=== PATIENT | male | born 1955 | race Caucasian/White ===

== ENCOUNTER 2020-12-02 14:45 | Emergency (ER) | payer MEDICARE, MEDICAID, SELFPAY ==
--- NOTE | ~2020-12-02 | XR_ITS ---
XR chest 1V portable 12/02/2020 16:31 Indication: Shortness of breath, fever and: Exposure Procedure: AP portable chest Comparison: No prior studies for comparison. Findings: Heart size normal. No focal air space disease, pulmonary edema, pleural effusion or suspect ed pneumothorax. Impression: 1: No acute cardiopulmonary disease. Reviewed, dictated and finalized at location A. ION MECHANIC Impression: 1: No acute cardiopulmonary disease.
[2020-12-02 14:53] VITALS: BP 164/79; PULSE 93; RESP 20; TEMP 37.8; O2SAT 97
--- NOTE | 2020-12-02 15:13 | ECG_ITS ---
Measurements Intervals Maurice Rate: 79 P: 69 MN: 179 QRS: 74 QRSD: 96 T: 81 QT: 345 QTc: 397 Interpretive Statements SINUS RHYTHM DELAYED PRECORDIAL R/S TRANSITION BORDERLINE ECG Electronically Signed On 12-02-2020 16:07:50 DEPARTMENTAL SHIPPING CLERK by Yohannes Santana D.O.
[2020-12-02 15:15] VITALS: BP 139/79; PULSE 84; RESP 20; O2SAT 96
--- NOTE | 2020-12-02 15:16 | WPDEDEXPGENP ---
HPI - General Ped General Chief complaint: Fever Stated complaint: AMB Source: patient Mode of arrival: ambulatory Limitations: no limitations History of Present Illness HPI narrative: Erick is a 65M with a PMH of tobacco abuse that was brought to the ED by EMS for a fever and SOB. He had been feeling a little down for about 1 week. However, 3-4 days ago he started feeling worse. He was short of breath and it was harder to breath. He had body aches, fatigue, and fevers up to 100 at home. No CP, N/V or syncope. Of note he had been exposed to a 91 year old neighbor that recently from [place]. Related Data Home Medications Medication Instructions Recorded Confirmed No Home Medications 12/02/20 12/02/20 Allergies Allergy/AdvReac Type Severity Reaction Status Date / Time No Known Allergies Allergy Verified 12/02/20 14:59 Pediatric Review of Systems : Constitutional: Reports fever, chills and other (fatigue) Eyes: Reports other (No additional concerns) ENT: Reports other (No additional concerns) Cardiovascular: Denies chest pain, palpitations and syncope Respiratory: Reports as per HPI Gastrointestinal: Denies abdominal pain, vomiting and diarrhea Genitourinary: Reports other (No additional concerns) Musculoskeletal: Reports myalgias Integumentary: Reports other (No additional concerns) Neurological: Reports other (No additional concerns) Psychiatric: Reports change in energy level (decreased energy) [facility] Social History Social History Gender identity (if verbalized by the patient): Male Pediatric Exam General: General appearance: well-appearing, well-hydrated, active and well-nourished Head: Head exam: normocephalic and atraumatic Eye: Eye exam: Present normal appearance and PERRL ENT: ENT exam: normal exam Neck: Neck exam: Present normal inspection Chest: Chest inspection: Present normal inspection Respiratory: Respiratory exam: Present normal lung sounds bilaterally and other (No wheezing, coughing or tachypnea. ) Cardiovascular: Cardiovascular exam: Present regular rate, normal rhythm and other (no murmur) Abdominal Exam: Abdominal exam: Present soft; Absent distention, tenderness and guarding Extremities Exam: Extremities exam: Present normal inspection Neurological Exam: Neurological exam: Present alert, oriented X3 and CN II-XII intact Skin: Skin exam: Present warm and dry Course Course Emergency Course: Erick was evaluated. Ordered EKG and labs as below. EKG showed NSR with a rate of 79, normal axis and no ST elevation/depression or ectopy Labs were remarkable for slighly elevated hemoglobin (likely from smoking) lymphopenia, mildly elevated D-dimer but negative given his age (per Age-adjusted D-dimer on MD calc), and normal chemistries. His rapid COVID was negative but a PCR was sent out given the possibility of false negative. XR chest 1V portable 12/02/2020 16:31 Indication: Shortness of breath, fever and: Exposure Procedure: AP portable chest Comparison: No prior studies for comparison. Findings: Heart size normal. No focal air space disease, pulmonary edema, pleural effusion or suspected pneumothorax. Impression: 1: No acute cardiopulmonary disease. As his vitals were WNL he was discharged home to quarantine. Vital Signs Vital signs: Vital Signs Temperature 100.0 F H 12/02/20 14:53 Pulse Rate 93 12/02/20 14:53 Respiratory Rate 20 12/02/20 14:53 Blood Pressure 164/79 H 12/02/20 14:53 Pulse Oximetry 97 12/02/20 14:53 Temperature 99.0 F 12/02/20 17:24 Pulse Rate 77 12/02/20 17:24 Respiratory Rate 20 12/02/20 17:24 Blood Pressure 147/77 H 12/02/20 17:24 Pulse Oximetry 96 12/02/20 17:24 Medical Decision Making Vital Signs Vital Signs: Vital Signs Temperature 100.0 F H 12/02/20 14:53 Pulse Rate 93 12/02/20 14:53 Respiratory Rate 20 12/02/20 14:53 Blo
[2020-12-02 15:38] LABS: Hematocrit 45.6 % (37.0-46.0); Hemoglobin 15.9 g/dL (12.4-15.3); Mean Corpuscular HGB Conc 34.9 g/dL (32.0-36.0); Mean Corpuscular Hemoglobin 30.6 pg (27.0-31.0); Mean Corpuscular Volume 87.9 fL (78.0-102.0); Mean Platelet Volume 10.5 fl (8.7-11.0); Platelet Count Result 111 K/mm3 (150-420); Red Blood Count 5.19 M/mm3 (4.70-6.10); Red Cell Distribution Width 13.2 % (11.6-14.4); White Blood Count 3.2 K/mm3 (4.8-10.8)
[2020-12-02 15:50] LABS: Prothrombin Time 10.6 Seconds (9.50-12.10)
[2020-12-02 15:53] LABS: Alanine Aminotransferase 35 U/L (16-63); Albumin Level 3.5 g/dL (3.4-5.0); Alkaline Phosphatase 89 U/L (46-116); Anion Gap 9 mmol/L (8-16); Aspartate Amino Transferase 22 U/L (15-37); Bilirubin,Total 0.3 mg/dL (0.00-1.00); Blood Urea Nitrogen 9 mg/dL (7-18); Calcium 8.2 mg/dL (8.5-10.1); Carbon Dioxide 28 mmol/L (21-32); Chloride 101 mmol/L (98-108); Estimated CRCL calculation 53 ml/min; Estimated Glomerular Filt Rate > 60; Glucose 99 mg/dL (70-99); Osmolality Calculated 284 mOsm/kg (285-295); Sodium 138 mmol/L (136-145); Total Protein 7.3 g/dL (6.4-8.2); Troponin I 6.1 ng/L (0.00-60.4)
[2020-12-02 15:56] LABS: Lactic Acid Reflex 0.5 mmol/L (0.4-2.0)
[2020-12-02 15:58] LABS: SARS-CoV-2 Ag Negative (Negative)
[2020-12-02 15:58] LABS: Influenza Control Valid (Valid)
[2020-12-02 16:00] VITALS: BP 144/81; PULSE 78; RESP 20; O2SAT 96
[2020-12-02 16:00] LABS: D Dimer 0.58 mg/L (0.19-0.50)
[2020-12-02 16:01] LABS: Band Neutrophils Percent 0 % (0-6); Basophils Absolute Manual 0.03 K/mm3 (0-0.1); Basophils Percent Manual 1 % (0-1); Eosinophils Percent Manual 0 % (1-6); Lymphocytes Percent Manual 22 % (18-44); Monocytes Absolute Manual 0.35 K/mm3 (0.1-0.90); Monocytes Percent Manual 11 % (3-9); Neutrophils Absolute Manual 2.11 K/mm3 (1.3-6.7); Neutrophils Percent Manual 66 % (46-73); Total Cells Counted 100
[2020-12-02 16:30] VITALS: BP 143/76; PULSE 78; RESP 20; O2SAT 96
[2020-12-02 16:39] LABS: Appearance Urine Clear (Clear); Bilirubin Urine Negative (Negative); Color Urine Yellow (Yellow); Glucose Urine UA Negative (Negative); Ketones Urine Negative (Negative); Leukocyte Esterase Ur Negative (Negative); Nitrate Urine Negative (Negative); Protein Urine Negative (Negative); Urobilinogen Urine 0.2 mg/dL (0.2-1.0); pH Urine 5.5 (5.0-8.0)
[2020-12-02 16:44] LABS: Add Urine Microscopic? YES; Blood Urine Trace (Negative); RBC Urine 0-2 /hpf (0-2); Squamous Epithelial Cell Urine Rare /hpf (Few); WBC Urine 0-3 /hpf (0-3)
[2020-12-02 16:45] LABS: Bacteria Urine Trace /hpf
[2020-12-02 17:24] VITALS: BP 147/77; PULSE 77; RESP 20; TEMP 37.2; O2SAT 96
[2020-12-04 18:11] LABS: SARS-CoV-2 RNA PCR Negative
== END 2020-12-02 17:26 | disposition home or self-care (01) ==
PROVIDERS: Emergency Provider Family Medicine
DX: Z20.822 Contact with and (suspected) exposure to COVID-19 (principal)
CPT/HCPCS: 71045; 80053; 81001; 83605; 84484; 85025; 85055; 85380; 85610; 87426; 87804; 93005; 99283; 99284; C9803; U0003; U0005

== ENCOUNTER 2023-03-16 08:55 | Emergency (ER) | payer OTHER, SELFPAY ==
[2023-03-16 09:09] VITALS: BP 165/82; PULSE 70; RESP 20; TEMP 36.9; O2SAT 96
--- NOTE | 2023-03-16 09:12 | ED.BACK ---
HPI - Back Pain/Injury General Chief Complaint: Back Pain/Injury Stated Complaint: back pain Time Seen by Provider: 03/16/23 08:57 Source: patient Mode of arrival: ambulatory Limitations: no limitations History of Present Illness HPI Narrative: this is a 68-year-old gentleman with history of chronic back pain presents with some left lower back pain with spasm, with no radiation of his pain no sciatic type discomfort, there is no numbness or tingling radiating down his leg, no history of kidney stones there is no dysuria no hematuria no fever chills. Pain started yesterday after he was mowing his lawn. There is no chest pain no shortness of breath no nausea vomiting no diarrhea constipation. MD elicited complaint: back pain Pertinent past history: prior back pain Onset (ago): day(s) Timing: constant Severity: mild Related Data Allergies Allergy/AdvReac Type Severity Reaction Status Date / Time No Known Allergies Allergy Verified 12/02/20 14:59 Review of Systems Review of Systems: All systems reviewed & are unremarkable except as noted in HPI and below PMFSH Past Medical History Medical History Patient denies medical problems Social History Social History Gender identity (if verbalized by the patient): Male Exam Const: General: healthy appearing Nutritional Appearance: well nourished Orientation/consciousness: patient oriented x3 Limitations: no limitations HENMT: Head: normal to inspection Eyes: Conjunctivae: conjunctivae normal Neck: Neck: normal visual inspection Chest: Chest palpation & inspection: normal inspection of the chest Resp: Effort & Inspection: normal respiratory effort Auscultation: clear to auscultation bilaterally Cardio: Rate: regular rate Rhythm: regular rhythm GI: GI Palp: Yes Soft to palpation Auscultation: normal bowel sounds : General: Yes bladder normal to palpation Back/Spine/Pelvis: Back: no CVA tenderness Skin: General skin exam: normal color Neuro: General: patient oriented x3 Extrem: General: normal to inspection Other: L5 left paravertebral tenderness with palpation with a negative straight leg raising test Psych: Mental Status: mental status grossly normal Affect: normal affect Course Course Emergency Course: patient received IM Toradol as well as IM muscle relaxer. Critical Care Time Critical Care Time Critical Care Time: No Discharge Plan Discharge Clinical Impression: Strain of lumbar region Qualifiers: Encounter type: initial encounter Qualified Code(s): S39.012A - Strain of muscle, fascia and tendon of lower back, initial encounter Patient Disposition: Home, Self-Care Condition: Stable Instructions: Antibiotic Form, Acute Low Back Pain (ED) Additional Instructions: advised to take medicine as prescribed and follow-up primary care if symptoms persist or worsen. Prescriptions: New cyclobenzaprine 10 mg tablet 10 mg PO TID Qty: 20 0RF naproxen 500 mg tablet 500 mg PO BID Qty: 14 0RF Follow-up/Referrals: UNKNOWN,DOCTOR [Primary Care Provider] -
[2023-03-16] MEDS: ORPHENADRINE CITRATE 30 MG/ML 2 ML VIAL 60 MG IM (09:17)
[2023-03-16] MEDS: KETOROLAC 30 MG/ML VIAL (*BKC) IM (09:17)
[2023-03-16 09:43] VITALS: BP 173/90; PULSE 74; RESP 20; TEMP 36.9; O2SAT 95
== END 2023-03-16 09:45 | disposition home or self-care (01) ==
LOC: CHSED 09:26
PROVIDERS: Emergency Provider Emergency Medicine
DX: S39.012A Strain of muscle, fascia and tendon of lower back, initial encounter (principal); X58.XXXA Exposure to other specified factors, initial encounter
CPT/HCPCS: 96372; 99284; J1885; J2360

== ENCOUNTER 2024-08-30 11:47 | Outpatient (CLI) | payer MEDICARE, MEDICAID, SELFPAY ==
[2024-08-30 12:09] LABS: Basophils Absolute Auto 0.06 K/mm3 (0.00-0.10); Basophils Percent Auto 0.9 % (0.0-1.0); Eosinophils Absolute Auto 0.08 K/mm3 (0.02-0.50); Eosinophils Percent Auto 1.2 % (1.0-6.0); Hematocrit 51.8 % (37.0-46.0); Hemoglobin 17.8 g/dL (12.4-15.3); Immature Granulocyte Absolute 0.03 K/mm3 (0.00-0.00); Immature Granulocyte Percent A 0.4 % (0.0-0.0); Lymphocytes Absolute Auto 1.33 K/mm3 (1.10-4.50); Lymphocytes Percent Auto 19.4 % (18.0-42.0); Mean Corpuscular HGB Conc 34.4 g/dL (32-36); Mean Corpuscular Hemoglobin 31.9 pg (27.0-31.0); Mean Corpuscular Volume 92.8 fL (78.0-102.0); Mean Platelet Volume 9.6 fl (8.7-11.0); Monocytes Percent Auto 10.2 % (2.0-11.0); Neutrophils Absolute Auto 4.66 K/mm3 (1.70-7.20); Neutrophils Percent Auto 67.9 % (50.0-70.0); Platelet Count Result 272 K/mm3 (150-420); Red Blood Count 5.58 M/mm3 (4.70-6.10); Red Cell Distribution Width 13.7 % (11.6-14.4); White Blood Count 6.9 K/mm3 (4.8-10.8)
[2024-08-30 12:59] LABS: Alanine Aminotransferase 30 U/L (16-63); Albumin Level 3.8 g/dL (3.4-5.0); Alkaline Phosphatase 116 U/L (46-116); Anion Gap 9 mmol/L (4-12); Aspartate Amino Transferase 18 U/L (15-37); Bilirubin,Total 0.4 mg/dL (0.00-1.00); Blood Urea Nitrogen 6 mg/dL (7-18); Calcium 9.5 mg/dL (8.5-10.1); Carbon Dioxide 29 mmol/L (21-32); Chloride 104 mmol/L (98-108); Cholesterol 206 mg/dL (0-200); Estimated Glomerular Filt Rate > 60; Glucose 88 mg/dL (70-99); HDL Direct 38 mg/dL (40-60); LDL Cholesterol Calculated 112 mg/dL (<130); Osmolality Calculated 290 mOsm/kg (285-295); Sodium 142 mmol/L (136-145); Total Protein 7.9 g/dL (6.4-8.2); Triglycerides 281 mg/dL (0-150)
[2024-08-30 13:02] LABS: Thyroid Stimulating Hormone Reflex 2.36 u/IU/mL (0.36-3.74)
[2024-08-31 10:08] LABS: Hepatitis A Antibody IgM NON-REACTIVE (NON-REACTIVE); Hepatitis B Core Antibody NON-REACTIVE (NON-REACTIVE)
[2024-08-31 10:29] LABS: Hepatitis B Surface Antigen NON-REACTIVE (NON-REACTIVE); Hepatitis C Virus Antibody NON-REACTIVE (NON-REACTIVE)
== END 2024-08-30 11:48 | disposition home or self-care (01) ==
PROVIDERS: PCP Family Medicine; Visit Provider Family Medicine
DX: Z00.00 Encounter for general adult medical examination without abnormal findings (principal); E03.9 Hypothyroidism, unspecified; R74.01 Elevation of levels of liver transaminase levels
CPT/HCPCS: 36415; 80053; 80061; 80074; 84443; 85025

== ENCOUNTER 2024-09-19 10:51 | Emergency (ER) | payer MEDICARE, MEDICAID, SELFPAY ==
--- NOTE | ~2024-09-19 | CT_ITS ---
EXAMINATION: CT facial bones wo con DATE: 09/19/2024 11:26 INDICATION: Right periorbital/cheek skin abscess. TECHNIQUE: Computed tomography (CT) of the facial bones and maxillofacial region was performed withou t intravenous contrast. Coronal reconstructions were obtained. Automated exposure control and iterati ve reconstruction technique were employed. The dose-length product was 457.03 mGy-cm. COMPARISON: None. FINDINGS: Cellulitis with skin thickening and haziness to the subcutaneous fat in the right malar region. Withi n this region is a 1.9 x 1.5 cm right malar loculated subcutaneous fluid collection which could repre sent an abscess or potentially superinfected sebaceous/epidermoid cyst. No soft tissue gas or radiopa que foreign bodies. Bilateral orbits are normal. Mild mucosal thickening in the anterior right ethmoi d an inferior right maxillary sinuses. Remainder of the paranasal sinuses are clear. Trace bilateral mastoid effusions. Bilateral middle ear cavities are clear. No maxillofacial fractures. There is exte nsive severe dental disease with dental caries of varying stages of progression throughout all of the teeth, many of which also demonstrated associated periapical lucencies. There is a 3.2 x 2.6 x 1.6 c m macroscopic fat attenuation lipoma at the right buccal region. Mild to moderate spondylosis in the visualized mid to upper cervical spine. IMPRESSION: 1. Right malar cellulitis with 1.9 x 1.5 cm likely abscess or superinfected sebaceous/epidermoid cyst . 2. 3.2 x 2.6 x 1.6 cm right buccal lipoma. 3. Extensive severe dental disease. Reviewed, dictated and finalized at location B. LANCE INTERPRETER/TRANSLATOR IMPRESSION: 1. Right malar cellulitis with 1.9 x 1.5 cm likely abscess or superinfected ketan aceous/epidermoid cyst. 2. 3.2 x 2.6 x 1.6 cm right buccal lipoma. 3. Extensive severe dental disease.
[2024-09-19 10:55] VITALS: BP 144/81; PULSE 84; RESP 16; TEMP 36.3; O2SAT 96
[2024-09-19 11:24] LABS: Basophils Absolute Auto 0.06 K/mm3 (0.00-0.10); Basophils Percent Auto 0.7 % (0.0-1.0); Eosinophils Absolute Auto 0.08 K/mm3 (0.02-0.50); Hematocrit 46.3 % (37.0-46.0); Hemoglobin 16.7 g/dL (12.4-15.3); Immature Granulocyte Absolute 0.03 K/mm3 (0.00-0.00); Immature Granulocyte Percent A 0.4 % (0.0-0.0); Lymphocytes Absolute Auto 0.97 K/mm3 (1.10-4.50); Lymphocytes Percent Auto 11.6 % (18.0-42.0); Mean Corpuscular HGB Conc 36.1 g/dL (32-36); Mean Corpuscular Hemoglobin 32.4 pg (27.0-31.0); Mean Corpuscular Volume 89.7 fL (78.0-102.0); Mean Platelet Volume 9.6 fl (8.7-11.0); Monocytes Absolute Auto 0.66 K/mm3 (0.10-0.90); Monocytes Percent Auto 7.9 % (2.0-11.0); Neutrophils Absolute Auto 6.57 K/mm3 (1.70-7.20); Neutrophils Percent Auto 78.4 % (50.0-70.0); Platelet Count Result 227 K/mm3 (150-420); Red Blood Count 5.16 M/mm3 (4.70-6.10); White Blood Count 8.4 K/mm3 (4.8-10.8)
--- NOTE | 2024-09-19 11:26 | PC.NURSE ---
pt to xray via wheel chair
--- NOTE | 2024-09-19 11:29 | PC.NURSE ---
Pt returned to room, call rtaore in reach.
[2024-09-19 11:40] LABS: Alanine Aminotransferase 30 U/L (16-63); Albumin Level 3.7 g/dL (3.4-5.0); Alkaline Phosphatase 112 U/L (46-116); Anion Gap 12 mmol/L (4-12); Aspartate Amino Transferase 18 U/L (15-37); Bilirubin,Total 0.9 mg/dL (0.00-1.00); Blood Urea Nitrogen 15 mg/dL (7-18); Calcium 9.5 mg/dL (8.5-10.1); Carbon Dioxide 27 mmol/L (21-32); Chloride 98 mmol/L (98-108); Estimated CRCL calculation 56 ml/min; Estimated Glomerular Filt Rate > 60; Glucose 107 mg/dL (70-99); Osmolality Calculated 284 mOsm/kg (285-295); Potassium 3.3 mmol/L (3.5-5.1); Sodium 137 mmol/L (136-145); Total Protein 8.3 g/dL (6.4-8.2)
[2024-09-19 11:43] LABS: Lactic Acid Reflex 1.6 mmol/L (0.4-2.0)
[2024-09-19] MEDS: LIDOCAINE HCL 1% LOCAL INJ 10 ML VIAL INFILTRATE (11:46)
--- NOTE | 2024-09-19 11:59 | ED.SKABFB ---
HPI - Skin/Abscess/Foreign Bdy General Chief complaint: Skin/Abscess/Foreign Body Stated complaint: facial abscess Source: patient Limitations: no limitations History of Present Illness HPI narrative: this is a 69-year-old male with history of hyperlipidemia presents from his doctor's office with some abscess on the right mid cheek area fluctuant red warm to touch with some no fever chills no shortness of breath no chest pain no blurry vision, there is no extension into the right eye. complaint: abscess/boil Onset (ago): week(s) Location: face Severity: moderate Related Data Allergies Allergy/AdvReac Type Severity Reaction Status Date / Time No Known Allergies Allergy Verified 09/19/24 10:31 Review of Systems Review of Systems: All systems reviewed & are unremarkable except as noted in HPI and below PMFSH Past Medical History Medical History Patient denies medical problems Social History Social History Smoking status: Current every day smoker Alcohol intake: never Substance use: never Gender identity (if verbalized by the patient): Male Exam Const: General: healthy appearing, no acute distress and alert Nutritional Appearance: well nourished Orientation/consciousness: patient oriented x3 Limitations: no limitations HENMT: Head: normal to inspection Eyes: Conjunctivae: conjunctivae normal Pupils: Equal, round and reactive pupils present EOM: EOMs intact bilaterally Direct Ophthalmoscopy: no photophobia Neck: Neck: normal visual inspection and lymphadenopathy Chest: Chest palpation & inspection: normal inspection of the chest Resp: Effort & Inspection: normal respiratory effort Auscultation: clear to auscultation bilaterally Cardio: Rate: regular rate Rhythm: regular rhythm Skin: Wounds: wounds noted Other: fluctuant abscess located on the right mid cheek area no extension into the right eye no blurry vision Neuro: General: patient oriented x3, moves all extremities, no meningeal signs and no focal motor deficits Course Course Emergency Course: I&D performed and drainage of purulent material, patient had a CT scan of the facial bones which showed no extension into the orbital region blood count is white cells were within normal range, potassium was 3.3 will give supplement of potassium. Patient was started on triple antibiotic ointment and 1g IM ceftriaxone administered. Vital Signs Vital signs: Vital Signs Temperature 36.3 C L 09/19/24 10:55 Pulse Rate 84 09/19/24 10:55 Respiratory Rate 16 09/19/24 10:55 Blood Pressure 144/81 H 09/19/24 10:55 Pulse Oximetry 96 09/19/24 10:55 Oxygen Delivery Room Air 09/19/24 10:55 Temperature 36.3 C L 09/19/24 10:55 Pulse Rate 84 09/19/24 10:55 Respiratory Rate 16 09/19/24 10:55 Blood Pressure 144/81 H 09/19/24 10:55 Pulse Oximetry 96 09/19/24 10:55 Oxygen Delivery Room Air 09/19/24 10:55 Procedures Abscess I/D face: Date of Incision: 09/19/24 Time of Incision: 12:02 Side (if applicable): right Sedation/analgesia: other Local Anesthetic: lidocaine 1% Amount of anesthesia used (mL): 5 Technique: incised with #11 blade Amount of fluid expressed (mL): 5 Irrigation: No Packing used?: none I&D Results: Pus and Blood Abcess I&D Additional Comments: Patient tolerated procedure well MDM - Skin/Abscess/Foreign Bdy Lab Data 09/19/24 11:18 09/19/24 11:18 Labs: Lab Results 09/19/24 Range/Units 11:18 WBC 8.4 (4.8-10.8) K/mm3 RBC 5.16 (4.70-6.10) M/mm3 Hgb 16.7 H (12.4-15.3) g/dL Hct 46.3 H (37.0-46.0) % MCV 89.7 (78.0-102.0) fL MCH 32.4 H (27.0-31.0) pg MCHC 36.1 H (32-36) g/dL RDW 13.0 (11.6-14.4) % Plt Count 227 (150-420) K/mm3 MPV 9.6 (8.7-11.0) fl Immature Gran % (Auto) 0.4 H (0.0-0.0) % Neut % (Auto) 78.4 H (50.0-70.0) % Lymph % (Auto) 11.6 L (18.0-42.0) % Whitfield % (Auto) 7.9 (2.0-11.0) % Eos % (Auto) 1.0 (1.0-6.0) % Baso % (Auto) 0.7 (0.0-1.0) % Lymph # (Auto) 0.97 L (1.10-4.50) K/mm3 Whitfield # (Auto) 0.66 (0.10-0.90) K/mm3 Eos # (Auto) 0.08 (0.02-0.50) K/mm3 Baso # (Auto) 0.06 (0.00-0.10) K/mm3 Abs Immat Gran (auto) 0.03 H (0.00-0.00) K/mm3 Absolute Neuts (auto) 6.57 (1.70-7.20) K/mm3 Absolute Nucleated RBC 0.00 (0.00-0.00) K/mm3 Nucleated RBC % 0.0 (0-0.0) % Sodium 137 (136-145) mmol/L Potassium 3.3 L (3.5-5.1) mmol/L Chloride 98 (98-108) mmol/L Carbon Dioxide 27 (21-32) mmol/L Anion Gap 12 (4-12) mmol/L BUN 15 (7-18) mg/dL Creatinine 0.99 (0.70-1.30) mg/dL Estim Creat Clear Calc 56 ml/min Estimated GFR > 60 (59 - ) Glucose 107 H (70-99) mg/dL Calculated Osmolality 284 L (285-295) mOsm/kg Lactic Acid 1.6 (0.4-2.0) mmol/L Calcium 9.5 (8.5-10.1) mg/dL Total Bilirubin 0.9 (0.00-1.00) mg/dL AST 18 (15-37) U/L ALT 30 (16-63) U/L Alkaline Phosphatase 112 (46-116) U/L Total Protein 8.3 H (6.4-8.2) g/dL Albumin 3.7 (3.4-5.0) g/dL Critical Care Time Critical Care Time Critical Care Time: No Discharge Plan Discharge Clinical Impression: Cellulitis Qualifiers: Site of cellulitis: face Qualified Code(s): L03.211 - Cellulitis of face Abscess of skin or subcutaneous tissue Qualifiers: Site of cutaneous abscess: face Qualified Code(s): L02.01 - Cutaneous abscess of face Patient Disposition: Home, Self-Care Condition: Stable Instructions: Antibiotic Form, Cellulitis (ED), Abscess (ED) Additional Instructions: advised patient to take medication as prescribed and follow up with primary within 1 to 2 weeks further evaluation and treatment. Prescriptions: New amoxicillin-pot clavulanate [Augmentin] 500-125 mg tablet 1 tablet PO TID Qty: 30 0RF mupirocin 2 % ointment 1 applic topical TID 7 Days Qty: 15 0RF No Action amlodipine 10 mg tablet 10 mg PO DAILY Qty: 90 0RF atorvastatin 20 mg tablet 20 mg PO DAILY Qty: 90 0RF Follow-up/Referrals: Lucas Gill DO [Primary Care Provider] - Time of Disposition: 12:06
--- NOTE | 2024-09-19 12:02 | PC.NURSE ---
Set up room for procedure; Assisted Dr. flores/ draining procedure
[2024-09-19] MEDS: POTASSIUM BICARBONATE 25 MEQ TABEF 50 MEQ PO (12:07)
[2024-09-19] MEDS: cefTRIAXone 1 GM, LIDOCAINE HCL 1% LOCAL INJ 2.1 ML IM (12:08)
[2024-09-19] MEDS: NEOMYCIN/POLYMYXIN/BACITRACIN OINTMENT PACKET 1 PACKET TOPICAL (12:09)
[2024-09-19 12:19] VITALS: BP 150/73; PULSE 79; RESP 18; TEMP 36.9; O2SAT 98
--- NOTE | 2024-09-20 14:12 | PC.NURSE ---
RIGHT CHEEK CULTURE PRELIMINARY GRAM STAIN NO WHITE BLOOD CELLS SEEN MANY GRAM NEGATIVE BACILLI FEW GRAM POSITIVE COCCI
--- NOTE | 2024-09-20 14:21 | PC.NURSE ---
PT SENT HOME ON AUGMENTIN 500-125MG TID FOR [address] ALDRICH THAT IS CORRECT TREATMENT
--- NOTE | 2024-09-21 13:08 | PC.NURSE ---
PRELIMINARY BLOOD CULTURE RESULTS: NO GROWTH TO DATE.
--- NOTE | 2024-09-22 14:11 | PC.NURSE ---
FINAL WOUND CULTURE RESULT: POSITIVE FOR PROTEUS MIRABILIS, PATIENT DISCHARGED ON AUGMENTIN, CULTURE IS SUSCEPTIBLE. NO FURTHER ACTION OR TREATMENT NEEDED PER DR. LLANOS
--- NOTE | 2024-09-24 16:04 | PC.NURSE ---
PRELIMINARY ANAEROBIC CULTURE RESULTS: GRAM NEGATIVE BACILLI, GRAM POSITIVE COCCI, NO ANAEROBES ISOLATED TO DATE FINAL AEROBIC CULTURE RESULTS: ISOLATE 1: HEAVY GROWTH OF PROTEUS MIRABILIS. PER C&S AND DR RAMIREZ, NO CHANGE IN [place] NEEDED AT THIS TIME. TO AWAIT FINAL ANAEROBIC RESULTS.
== END 2024-09-19 12:19 | disposition home or self-care (01) ==
PROVIDERS: Emergency Provider Emergency Medicine; PCP Family Medicine
DX: L03.211 Cellulitis of face (principal); L02.01 Cutaneous abscess of face; E78.5 Hyperlipidemia, unspecified; F17.200 Nicotine dependence, unspecified, uncomplicated
CPT/HCPCS: 10060; 36415; 70486; 80053; 83605; 85025; 87040; 87070; 87075; 87186; 87205; 96372; 99284; A9270; J0696; J2003

== ENCOUNTER 2025-03-21 10:43 | Outpatient (CLI) | payer MEDICARE, SELFPAY | END 2025-03-21 10:44 | disposition home or self-care (01) | LOC: CHSLAB 10:44 | PROVIDERS: PCP Family Medicine; Visit Provider Family Medicine | DX: R53.83 Other fatigue (principal) | CPT/HCPCS: 99199 ==